=== PATIENT | male | born 1975 | race Caucasian/White ===

== ENCOUNTER 2023-06-21 07:54 | Inpatient (IN) | payer MEDICARE, OTHER ==
[~2023-06-21] VITALS: Ht 175.3 cm; Wt 88.8 kg
[2023-06-21] VITALS (11 sets, daily range): BP systolic 127–163; BP diastolic 94–125
[2023-06-21 08:10] LABS: Calcium, Ionized (POC) 1.17 mmol/L (1.10-1.46); Chloride (POC) 108 mmol/L (98-108); Creatinine (POC) 1.9 mg/dL (0.8-1.3); Glucose (ISTAT POC) 141 mg/dL (70-99); Hemoglobin (POC) 15.6 g/dL (13.5-17.5); Potassium (POC) 3.6 mmol/L (3.5-5.5); Sodium (POC) 141 mmol/L (135-148); Total CO2 (POC) 18 mmol/L (21-32)
[2023-06-21 08:27] LABS: BASOPHILS ABSOLUTE AUTO 0.07 K/mm3 (0.00-0.23); BASOPHILS PERCENT AUTO 1 % (0-2); EOSINOPHILS ABSOLUTE AUTO 0.36 K/mm3 (0.00-0.68); EOSINOPHILS PERCENT AUTO 3 % (0-6); Hematocrit 43.9 % (37.0-53.0); Hemoglobin 14.9 g/dL (13.5-17.5); IMMATURE GRAN ABSOLUTE AUTO 0.04 K/mm3 (0.00-0.10); IMMATURE GRAN PERCENT AUTO 0 % (0-1); LYMPHOCYTES ABSOLUTE AUTO 3.35 K/mm3 (0.84-5.20); LYMPHOCYTES PERCENT AUTO 28 % (21-46); MONOCYTES ABSOLUTE AUTO 0.88 K/mm3 (0.16-1.47); MONOCYTES PERCENT AUTO 8 % (4-13); Mean Corpuscular HGB 31.6 pg (26.0-34.0); Mean Corpuscular HGB Conc 33.9 g/dL (31.5-36.5); Mean Corpuscular Volume 93 fL (80-100); Mean Platelet Volume 10.5 fL (9.1-12.4); NEUTROPHILS PERCENT AUTO 60 % (41-73); Platelet Count 257 K/mm3 (150-400); RDW Coefficient Variation 12.9 % (11.7-14.2); RDW Standard Deviation 44.4 fL (35.1-46.3); Red Blood Cell Count 4.72 M/mm3 (4.30-5.90)
[2023-06-21 08:41] LABS: Albumin, Blood 4.1 g/dL (3.4-5.0); Albumin/Globulin Ratio 1.3 (0.8-1.8); Bilirubin, Total 0.4 mg/dL (0.1-1.0); Calcium, Blood 9.1 mg/dL (8.5-10.1); Creatinine, Blood 1.75 mg/dL (0.60-1.20); Globulin, Blood 3.2 g/dL (2.2-4.0); Potassium, Blood 3.7 mmol/L (3.5-5.5); Total Protein, Blood 7.3 g/dL (6.4-8.2)
[2023-06-21 08:45] LABS: International Normalized Ratio 0.98; Prothrombin Time Results 10.3 Sec (9.7-11.5)
--- NOTE | 2023-06-21 11:00 | NUR ---
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 S/P STENT TO LAD. PT IS A/O X4. DENIES CP, SOB, AND N/V. R RADIAL ACCESS SITE WITH TR BAND IN PLACE. PT HAS SUPRAPUBIC CATH IN PLACE. PT IS ABLE TO VOID ON HIS OWN WITH A URINAL. DOES NOT USE A COLLECTION BAG. PT IS ADAMANT THAT HE DOES NOT WANT THE CATHETER CHANGED OUT. HE STATES HE HAS IT CHANGED IN UROLOGY CLINIC AND HAS AN APPOINTMENT NEXT WEEK.
[2023-06-21 15:41] LABS: Source, Urine Suprapubic Cath
[2023-06-21 15:48] LABS: Appearance, Urine Hazy (Clear); Bilirubin, Urine Neg (Neg); Blood, Urine 2+ (Neg); Glucose Qualitative, Urine Neg (Neg); Ketones, Urine Neg (Neg); Leukocyte Esterase, Urine 1+ (Neg); Nitrite, Urine Neg (Neg); Protein, Urine 3+ (Neg); Urobilinogen, Urine NORM (Normal)
[2023-06-21 15:58] LABS: Color, Urine Pale Yellow (P-Yellow)
[2023-06-21 15:59] LABS: Bacteria Many /hpf; Red Blood Cells, Urine 0-2 /hpf (0-2); Squamous Epithelial Cells Not Seen /hpf (Few)
--- NOTE | 2023-06-21 18:57 | NUR ---
SUMMARY PT RESTING IN BED. A/O X4. DENIES CP. R RADIAL ACCESS SITE. HEMATOMA DEVELOPED ABOVE TR BAND WHEN FIRST 2ML OF AIR WAS DEFLATED. REPLACED AIR AND APPLIED PRESSURE ABOVE SITE. SITE WOULD GET SOFT AGAIN THEN WHEN TRIED TO DEFLATE AGAIN HEMATOMA WOULD DEVELOPE ABOVE THE SITE AGAIN. HAD SUPERINTENDENT ELECTRIC POWER RN COME LOOK AT SITE AND SHOWED DR. PADILLA WELL. PLACED 2ND TR BAND WITH 6ML OF AIR ABOVE ORIGINAL TR BAND THEN SLOWLY DEFLATED ORIGINAL TR BAND. NOW HAVE 2ND TR BAND DOWN TO 3ML AND SITE IS WITHOUT HEMATOMA. SOME PURPLE BRUISING TO WRIST. SPO2 MONITOR ON R INDEX FINGER WITH GOOD PLETH READING 97%. PT HAS CHRONIC SUPRAPUBIC THAT PT DOES NOT WANT CHANGED OUT. HE STATES HE HAS AN APPOINTMENT NEXT WEEK WITH UROLOGIST THAT WILL CHANGE IT OUT. PT DRAINS URINE ON HIS OWN SCHEDULE AND WILL NOTIFY RN WHEN HE NEEDS TO DRAIN. PT DOES NOT CONNECT TO A COLLECTION BAG. NO SOURCE OF IGNITION PER PT, PT IS NON SMOKER. PT EDUCATED ABOUT NO SMOKING, VAPING, OR OPEN FLAME IN HOSPITAL.
--- NOTE | 2023-06-21 20:42 | NUR ---
ASSUMED CARE PT IS A&O X4; SPO2 >92% ON RA; MAP >65; HR IN 60'S. PT DENIES CP, SOB, OR NAUSEA. TWO TR BANDS IN PLACE D/T HEMATOMA ON PREVIOUS SHIFT. NO AIR IN TR BAND OVER INCISION SITE AND 2ML OF AIR LEFT IN "HEMATOMA" TR BAND. BRUISING NOTED, BUT NO HEMATOMA OR OOZING OBSERVED. PT STATED THAT HE WOULD PREFER HIS SUPRAPUBIC CATHETER TO BE CHANGED BY UROLOGIST. PREVIOUS SHIFT RN SENT OFF [facility]; NO SWELLING OR REDNESS NOTED AROUND SUPRAPUBIC CATHETER SITE.
--- NOTE | 2023-06-21 22:30 | NUR ---
TRANSFER PT TRANSFERRED OUT OF UNIT TO U 14 AT 2230. ALL BELONGINGS AND CHART W/ PT.
--- NOTE | 2023-06-21 23:12 | NUR ---
ARRIVAL TO [facility] / SAFETY & EDUCATION / TR BAND RECOVERY PT TRANSFERED FROM ICU TO [facility] VIA WHEELCHAIR BY THIS RN AND ICU PCT, ALL PT BELONGINGS PRESENT. PT ARRIVED TO [facility] AT APPROXIMATELY 2230, TRANSFRED FROM WHEELCHAIR TO BATHROOM AND BACK TO HOSPITAL BED IND. PT A&Ox4, COMMUNICATES NEEDS APPROPRIATELY, ORIENTED PT TO CALL LIGHT/UNIT. BP STABLE, SINUS 60's, DENIES CP/PRESSURE. SpO2> 92% RA, DENIES SOB. PT MANAGES SUPRAPUBIC CATH IND. PT & FAMILY EDUCATED RE: IGINITION SOURCES AND RISK OF INJURY WHILE OXYGEN IS IN USE. PT DENIES SMOKING & PT AND FAMILY VERBALIZE UNDERSTANDING. TR BAND RECOVERY: PT ARRIVED TO [facility] WITH TWO TR BANDS AND ARM BOARD IN PLACE. TR BAND DIRECTLY OVER R RADIAL SITE WAS EMPTY UPON ARRIVAL. SECOND TR BAND HAD 2mLs OF AIR IN IT UPON ARRIVAL AND WAS DIRECTLY PROXIMAL TO R RADIAL SITE TR BAND. THIS RN REMOVED THE 2mLs OF AIR AND LEFT BOTH TR BANDS IN PLACE WHILE ASSESSING THE PT AND GETTING THEM SETTLED IN THE ROOM. THERE IS MILD BRUISING PRESENT BUT NO ADDITIONAL SWELLING/HEMATOMA OR OOZING. THIS RN REMOVED BOTH TR BANDS, CLEANED SITE WITH CHLORHEXIDINE, APPLIED SKIN PREP, PLACED TEGADERM DRESSING OVER SITE, AND REAPPLIED ARM BOARD.
[2023-06-22 03:07] VITALS: BP 149/105
[2023-06-22 03:59] LABS: BASOPHILS ABSOLUTE AUTO 0.05 K/mm3 (0.00-0.23); BASOPHILS PERCENT AUTO 0 % (0-2); EOSINOPHILS ABSOLUTE AUTO 0.13 K/mm3 (0.00-0.68); EOSINOPHILS PERCENT AUTO 1 % (0-6); Hematocrit 44.2 % (37.0-53.0); Hemoglobin 15.7 g/dL (13.5-17.5); IMMATURE GRAN ABSOLUTE AUTO 0.07 K/mm3 (0.00-0.10); IMMATURE GRAN PERCENT AUTO 1 % (0-1); LYMPHOCYTES ABSOLUTE AUTO 2.11 K/mm3 (0.84-5.20); LYMPHOCYTES PERCENT AUTO 17 % (21-46); MONOCYTES ABSOLUTE AUTO 0.98 K/mm3 (0.16-1.47); MONOCYTES PERCENT AUTO 8 % (4-13); Mean Corpuscular HGB Conc 35.5 g/dL (31.5-36.5); Mean Corpuscular Volume 90 fL (80-100); Mean Platelet Volume 10.5 fL (9.1-12.4); NEUTROPHILS ABSOLUTE AUTO 9.39 K/mm3 (1.96-9.15); NEUTROPHILS PERCENT AUTO 74 % (41-73); Platelet Count 240 K/mm3 (150-400); RDW Coefficient Variation 12.8 % (11.7-14.2); RDW Standard Deviation 42.2 fL (35.1-46.3); White Blood Cell Count 12.73 K/mm3 (4.00-11.30)
[2023-06-22 04:27] LABS: Albumin, Blood 3.7 g/dL (3.4-5.0); Albumin/Globulin Ratio 1.2 (0.8-1.8); Bilirubin, Total 0.7 mg/dL (0.1-1.0); Bun/Creatinine Ratio 13.9 (12.0-20.0); Creatinine, Blood 1.44 mg/dL (0.60-1.20); Globulin, Blood 3.2 g/dL (2.2-4.0); Magnesium, Blood 1.8 mg/dL (1.6-2.4); Phosphorus, Blood 3.4 mg/dL (2.5-4.9); Potassium, Blood 4.1 mmol/L (3.5-5.5); Thyroid Stimulating Hormone 1.55 uIU/mL (0.360-4.800); Total Protein, Blood 6.9 g/dL (6.4-8.2)
--- NOTE | 2023-06-22 04:31 | NUR ---
SHIFT SUMMARY SEE PREVIOUS NOTES. NO ACUTE CHANGES. PT A&Ox4, CALLS AND COMMUNICATES NEEDS APPROPRIATELY. BP STABLE, SINUS 60's, DENIES CP/PRESSRE. SpO2> 92% RA, DENIES SOB. SBA IN ROOM. MANAGES SUPRAPUBIC CATH IND. R RADIAL SITE REMAINS UNCHANGED WITH MILD BRUISING. SITE IS SOFT, PT DENIES TENDERNESS. ARM BOARD IN PLACE. NO OTHER EVENTS, WILL REPORT TO ONCOMING RN.
[2023-06-22 09:04] VITALS: BP 138/102
[2023-06-22] MEDS ORDERED: AMLO10 PO (10:03)
[2023-06-22] MEDS ORDERED: ASPI81CH PO (10:03)
[2023-06-22] MEDS ORDERED: ATOR80 PO (10:04)
[2023-06-22] MEDS ORDERED: Carvedilol12.5 MG PO (10:04)
[2023-06-22] MEDS ORDERED: Prinivil10 MG PO (10:04)
[2023-06-22] MEDS ORDERED: NITR.4SL SL (10:07)
[2023-06-22] MEDS ORDERED: TICA90TA PO (10:08)
[2023-06-22] MEDS ORDERED: HYDR10 PO (10:09)
--- NOTE | 2023-06-22 10:51 | NUR ---
PT DISCHARGED HOME IN THE CARE OF HIS , ALL PERSONAL BELONGINGS SENT HOME WITH PT. DISCHARGE TEACHING PROVIDED TO PT AND HIS INCLUDING MEDICATION LIST, RADIAL SITE CARE, FOLLOW UP APPOINTMENTS AND PRINTED EDUCATION MATERIALS. PT AND VERBALIZE UNDERSTANDING AND HAVE NO QUESTIONS OR CONCERS AT THIS TIME. IGNITION ASSESSMENT COMPLETED, PT HAS NO LIGHTERS OR OTHER SOURCES IN HIS ROOM. COMPLETED W HOURLY ROUNDING. NO FURTHER DISCHARGE NEEDS IDENTIFIED.
== END 2023-06-22 10:52 | disposition home or self-care (01) | DRG 246 ==
LOC: ER 07:54 → PCU 09:29 → ICUE 09:29 → PCU 22:32
PROVIDERS: Emergency Medicine; Hospitalist; ADMIT Internal Medicine Cardiovascular Disease
PROC: 027034Z Dilation of Coronary Artery, One Artery with Drug-eluting Intraluminal Device, Percutaneous Approach (ICD-10-PCS; principal; 2023-06-21)
PROC: B241ZZ3 Ultrasonography of Multiple Coronary Arteries, Intravascular (ICD-10-PCS; 2023-06-21)
PROC: B2111ZZ Fluoroscopy of Multiple Coronary Arteries using Low Osmolar Contrast (ICD-10-PCS; 2023-06-21)
PROC: 4A023N7 Measurement of Cardiac Sampling and Pressure, Left Heart, Percutaneous Approach (ICD-10-PCS; 2023-06-21)
PROC: B2151ZZ Fluoroscopy of Left Heart using Low Osmolar Contrast (ICD-10-PCS; 2023-06-21)
DX: I24.9 Acute ischemic heart disease, unspecified (principal); I21.09 ST elevation (STEMI) myocardial infarction involving other coronary artery of anterior wall; N17.9 Acute kidney failure, unspecified; I12.9 Hypertensive chronic kidney disease with stage 1 through stage 4 chronic kidney disease, or unspecified chronic kidney disease; F90.9 Attention-deficit hyperactivity disorder, unspecified type; G89.4 Chronic pain syndrome; N18.31 Chronic kidney disease, stage 3a; M54.50 Low back pain, unspecified; D35.00 Benign neoplasm of unspecified adrenal gland; Q86.0 Fetal alcohol syndrome (dysmorphic); N31.9 Neuromuscular dysfunction of bladder, unspecified; M47.897 Other spondylosis, lumbosacral region; F12.90 Cannabis use, unspecified, uncomplicated; M41.9 Scoliosis, unspecified; Z98.890 Other specified postprocedural states; Z88.0 Allergy status to penicillin; Z87.891 Personal history of nicotine dependence
CPT/HCPCS: 36415; 71045; 76937; 80047; 80053; 81001; 83735; 83880; 84100; 84443; 84484; 85014; 85025; 85347; 85520; 85610; 85730; 87077; 87086; 87186; 92978; 93005; 93010; 93454; 96365; 99152; 99153; 99285-25; A9270; C1725; C1753; C1769; C1874; C1887; C1894; C8929; C9606; J1644; J2250; J2270; J3010; J7030; J7050; Q9957; Q9967